=== PATIENT | female | born 1980 | race Caucasian/White ===

== ENCOUNTER 2021-12-05 15:36 | Outpatient (REF) | payer SELFPAY ==
--- NOTE | 2021-12-05 15:00 | PAPFT_PTH ---
PATIENT: Cassy Cedeño LOC: [facility] U#:[id number] AGE/SX: 40/F ROOM: RE12/05/[address]: MATTHEW Loco : 1980 BED: DIS: 12/05/2021 SPEC #: [id number] RECD: 12/05/21 17:13 STATUS: ELIZABETH REGeorge #: [id number] PANCHO: 12/05/21 15:[address]: Lisa Abbasi DEPT: [facility] Cytology RECD BY: Fatou Fernando ENTERED: 12/05/21 17:14 SP TYPE: PAPFT ELMER DR: None Tissues: 1 - CX/ENDOCX FOR PAP SMEARS Procedures: PAP THIN PREP/UVM Screening HPV DNA PROBE Comments: [id number]
== END 2021-12-05 15:37 | disposition home or self-care (01) ==
LOC: LBN 15:36
PROVIDERS: Visit Provider Nurse Practitioner Family
DX: Z12.4 Encounter for screening for malignant neoplasm of cervix (principal); Z11.51 Encounter for screening for human papillomavirus (HPV)
CPT/HCPCS: 88142; 87624

== ENCOUNTER 2023-08-02 18:52 | Inpatient (IN) | payer OTHER, SELFPAY ==
[2023-08-02 17:35] VITALS: BP 132/79; PULSE 117; RESP 16; TEMP 36.7
[2023-08-02 17:36] VITALS: BP 132/79; PULSE 117; TEMP 36.7
--- NOTE | 2023-08-02 18:32 | HPE_ITS ---
Date of service: 08/02/23 Time of Service: 19:08 Assessment and Plan Assessment and plan (1) Encounter for induction of labor: Status: Acute Assessment and plan: Admit to Center. I reviewed indications for induction of labor including prolonged rupture of membranes and unknown GBS status and options of pitocin, misoprostol or cervidil discussed. Risk factors reviewed. Cassy reports weight at 167. However current weight and weight gain is unknown and estimated at over 30 BMI. Estimated weight larger than her largest baby in the past. I reviewed risk of shoulder dystocia and prolapse of the cord due to the high station at this time. She opted for misoprostol at this time and will start misoprostol per protocol. IV access was recommended and she agrees to that. Comfort measures. Anticipate . (2) Prolonged rupture of membranes: Status: Acute Assessment and plan: reviewed risks related to prolonged rupture of membranes and unknown GBS status including illness and . She declines GBS testing at this time. Cassy verbalized understanding and declines antibiotic prophylaxis. Care of the baby was reviewed including 48 hour observation after . Cassy's status reviewed with Dr. Whitaker who is the covering T[employer] BU[employer]DER HELPER. OB-HPI Labor/Delivery History of Present Illness Reason for Visit: NST Chief Complaint: Suspected Rupture of Membranes , Associated Signs and Symptoms of Suspected ROM: prolonged. BLAYNE Calculator Estimated Delivery Date Method Current WG Current Estimate 08/01/23 LMP (Uncertain) 40w 1d Comments: Cassy called this morning at 0900 with report of rupture of membranes at 0300 for a large amount of clear fluid. She declined to come to the hospitalm preferring to labor as long as possible at home. She reported mild contractions and good movement. She called back at 1600 and had been trying various positions and spinning babies but still had no regular contractions. She had not slept and was concerned about fatigue. I recommended that she come to the center for assessment and to dicuss options. History of Present Expected Delivery Route/Plan - CNM FOB - Hardeep Min (new partner, his first child) BB, circ TBD by FOB Declines GBS and all labs; declines all baby meds Her friend/commercial hvac technician (Rachel) will be providing labor support, hopes for waterbirth. Specific Issues/Plan 1. Transfer in from home practice, had 3 babies here at [facility] with CNM's in past 2. Had dating US, records release signed 07/02/23- Dating US and limited anatomy scan performed by Home CNRodolfo in office 3. Taking low dose ASA due to AMA and BMI 4. Declines all labs and GBS, accepts blood if needed to save life 5. See Chiropractor for back pain, records release signed 07/02/23 6. Pt & FOB have 4 children as she adopted a daughter who is now 13 [facility] All Active Problems (Updated 08/02/23 @ 18:32 by Juliette Burroughs CNM) Prolonged rupture of membranes (Acute) Encounter for induction of labor (Acute) IUD strings lost (Acute) Medical History IUD surveillance (02/22/15) IUD (intrauterine device) in place (06/02/16) Vaginal births x 3/ I adopted child Family History Mother Personal history of malignant neoplasm Social History Smoking/Tobacco Use Status: Never Smoking risk assessment performed?: Yes Alcohol Intake: never Drug use: Never Adopted: No Household members: spouse and children Housing: house Number of Children: 4 Communication Needs: None Education Level: college Do you need help understanding health information?: Never Pets and animals: Yes (5 dogs, 2 cats, chicken and ducks) Pets and animals: cat(s) and dog(s) Sexually active: Yes Do you think of yourself as: straight/heterosexual Current gender identity: female What type of physical activity do you participate in: walking Duration: 15-30 minutes/day Frequency: 1-2 times per week Special yaa needs: No Agree to transfusion: Yes Seatbelt use: always Drive intox or ride w/intox haul driver: No Do you feel safe at home: Yes Do you feel safe in your relationship?: Yes Victim of physical abuse: No Victim of emotional abuse: No Victim of sexual abuse: No Would you like helpful sources: No History History 4 Para 3 Hx # Term Pregnancies 3 Multiple births 0 Hx # Pregnancies 0 Ectopic pregnancies 0 AB induced 0 Hx Number of Living Children 3 AB spontaneous 0 Past Pregnancies Del. Date GA/Weeks # Preg Succ Route Wgt Sex Labor Lgth Anesth esia Location Prov Complic 08/21/00 40 No Yes vaginal 7 lb 3 oz Female 12 04/25/03 41 No Yes vaginal 7 lb 7 oz Female 12 03/21/08 42 No Yes vaginal 8 lb 11 oz Male 10 Delivery Date: 08/21/00 Last Updated by: ANNA Garcia with Vandana Pruett Delivery Date: 04/25/03 Last Updated by: ANNA Garcia with Kulwinder Georges Delivery Date: 03/21/08 Last Updated by: ANNA Garcia with Neal Georges Meds Allergies and Home Medications Allergies Allergy/AdvReac Type Severity Reaction Status Date / Time No Known Drug Allergies Allergy Verified 07/29/23 09:43 apple AdvReac Severe Anaphylaxis Verified 07/29/23 09:43 lee AdvReac Anaphylaxis Verified 07/29/23 09:43 peach AdvReac Anaphylaxis Verified 07/29/23 09:43 Home Medications Medication Instructions Recorded Confirmed Type aspirin 81 mg tablet,delayed 81 mg PO DAILY 07/02/23 08/02/23 History release (Adult Aspirin Regimen) magnesium 200 mg tablet 400 mg PO DAILY 07/02/23 08/02/23 History vitamins no.147-iron 1 tab PO DAILY 07/02/23 08/02/23 History gluconate 13 mg-folic acid 1 mg tablet ferrous sulfate 15 mg iron (75 15 mg PO DAILY 07/29/23 08/02/23 History mg)/mL oral syringe (ORAL USE) Exam Physical Exam Vital signs: Temp Pulse Resp BP 98.1 F 117 H 16 132/79 08/02/23 17:36 08/02/23 17:36 08/02/23 17:35 08/02/23 17:36 Detailed Labor and Delivery Exam Dilation: 1 Effacement (%): 25 station: -4 Cervix position: mid Consistency: soft Lemos Score: Cervical Points Exam 0 1 2 3 Dilation Closed 1-2cm 3-4 cm 5-6cm Effacement 0-30% 40-50% 60-70% 80% Consistency Firm Medium Soft Station -3 -2 -1,0 +1,+2 Position Posterior Mid Anterior LEMOS Score(Cervical Ripeness Score): 4 Amniotic Membrane Status: Ruptured (grossly ruptured leaking clear fluid) Rupture Method: Spontaneous Amniotic Fluid: Clear Monitor Mode: External Contraction Frequency(min): occasional Contraction Duration(sec): 60 Contraction Intensity: Mild Fetus A Heart Rate Baseline: 130 Monitor Accelerations: 15 X 15 Monitor Decelerations: None Variability: Moderate (6-25 BPM) Presentation: Vertex Categories: Category I Date of Membrane Rupture: 08/02/23 Time of Membrane Rupture: 03:00 Respiratory Exam Respiratory Exam: Normal Cardiovascular Exam Cardiovascular Exam: Normal Abdominal Exam Abdominal Exam: Normal Exam Exam: Normal Extremities Exam Extremities Exam: Normal Skin Exam Skin Exam: Normal Psychiatric Exam Psychiatric Exam: Normal Risk Assessment Risk for Shoulder Dystocia Historical/Initial OB: POSITIVE FOR: Pre- BMI>30; NEGATIVE FOR: Pelvic Abnormality, Previous Shoulder Dystocia or Previous Macrosomia 40 Weeks: POSTIVE FOR: Maternal Weight Gain >40lb (unknown weight gain. Patient declines all weight checks) Increased Risk?: Yes Delivery Plan @ 36wks: NVD expected Delivery Plan @ 40 wks: Risk for Pre-Eclampsia Yes, if one or more: NEGATIVE FOR: Hx Pre-E/Gest HTN, Chronic HTN, Multiple Gestation, Pre-gestational DM, Renal Disease, Systemic Lupus or APA Syndrome Yes, if 2 or more: POSITIVE FOR: Age>= 35 yrs, >10yr btwn pregnancies and BMI>30; NEGATIVE FOR: Nulliparity, ethinicty, Mother/Sister w/ Pre-E or Previous IUGR Risk for Post- Hemorrhage Initial: NEGATIVE FOR: Multiple Gestation, Previous PPH, Known Clotting Deficiency, Grand Multiparity or Anticoagulation 40 Weeks: NEGATIVE FOR: Anemia, hgb<10, Low platelets (thrombocytopenia), Gestation HTN or Pre-E, Polyhydraminios or EFW>4500gms At Risk?: No Risks Reviewed Risks Reviewed Upon Admission: Yes (increased risk of preeclampsia )
[2023-08-02 19:16] LABS: HGB 12.8 g/dL (11.2-15.7); MCH 28.3 pg (27.0-33.0); MCHC 34.6 % (32.0-36.0); MCV 82 fL (80-95); MPV 10.5 fL (8.0-11.0); Platelet Count 256 10^3/uL (130-400); RBC 4.53 10^6/uL (3.93-5.22); RDW 14.6 % (11.7-14.6); RDW-SD 42.6 fL; WBC 11.81 10^3/uL (4.4-10.8)
[2023-08-02 20:55] VITALS: BP 120/73; PULSE 110; TEMP 36.6
[2023-08-02] MEDS: Penicillin G POT. 5,000,000 UNITS in Normal Saline 100 ML 200 UNITS IVPB (20:56)
[2023-08-02] MEDS: Lactated Ringers 1,000 ML 200 ML IV (20:57)
[2023-08-02] MEDS: miSOPROStol 25 MCG TAB 50 MCG PO (21:08)
[2023-08-02 21:39] VITALS: TEMP 36.7
[2023-08-02 23:09] VITALS: BP 128/85; PULSE 94; TEMP 36.9
[2023-08-03] VITALS (189 sets, daily range): BP systolic 89–160; BP diastolic 47–84; PULSE 0–245; RESP 16–20; TEMP 36.4–36.9; O2SAT 88–100; BMI 28.6
--- NOTE | 2023-08-03 01:09 | ANES.PREOP_ITS ---
General Info Date of Service Date Performed: 08/03/23 Height: 5 ft 4 in Weight: 75.75 kg Body Mass Index (BMI): 28.6 Meds Allergies and Home Medications Allergies Allergy/AdvReac Type Severity Reaction Status Date / Time No Known Drug Allergies Allergy Verified 07/29/23 09:43 apple AdvReac Severe Anaphylaxis Verified 07/29/23 09:43 lee AdvReac Anaphylaxis Verified 07/29/23 09:43 peach AdvReac Anaphylaxis Verified 07/29/23 09:43 Home Medication Medication Instructions Recorded aspirin 81 mg tablet,delayed 81 mg PO DAILY 07/02/23 release (Adult Aspirin Regimen) magnesium 200 mg tablet 400 mg PO DAILY 07/02/23 vitamins no.147-iron 1 tab PO DAILY 07/02/23 gluconate 13 mg-folic acid 1 mg tablet ferrous sulfate 15 mg iron (75 15 mg PO DAILY 07/29/23 mg)/mL oral syringe (ORAL USE) Current Visit Medications: Current Medications Generic Name Dose Route Start Last Admin Trade Name Freq PRN Reason Stop Dose Admin Fentanyl/Ropivacaine 200 ml 08/03/23 01:15 Fentanyl/Ropivacaine 2 Mcg/Ml And 0.1% 200 Ml Cadd Cassette EP DIRECTED GIOVANNI Ringer's Solution 1,000 mls @ 200 mls/hr 08/02/23 19:00 08/02/23 21:38 IV 0 mls/hr INFUSION [facility] Infusion Penicillin G Potassium 3,000, 50 mls @ 100 mls/hr 08/03/23 02:00 000 units/ Sodium Chloride IVPB Q4H GIOVANNI Ringer's Solution 500 mls @ 500 mls/hr 08/03/23 01:02 IV 08/03/23 02:01 BOLUS ONE IV Miscellaneous Supplies 1 each 08/02/23 19:00 Iv Access IV DIRECTED [facility] IV Miscellaneous Supplies 1 each 08/02/23 20:30 Iv Access IV DIRECTED [facility] Misoprostol 50 mcg 08/02/23 19:00 08/02/23 21:08 Misoprostol 25 Mcg Tab PO 50 mcg Q4H GIOVANNI Administration Sodium Chloride 0 ml 08/02/23 18:52 Normal Saline Flush 10 Ml Syr IVP PRN PRN Sodium Chloride 0 ml 08/02/23 18:52 Normal Saline 10 Ml Vial IJ DIRECTED PRN Sodium Chloride 0 ml 08/02/23 20:29 Normal Saline Flush 10 Ml Syr IVP PRN PRN Sodium Chloride 0 ml 08/02/23 20:29 Normal Saline 10 Ml Vial IJ DIRECTED PRN Terbutaline Sulfate 0.25 mg 08/02/23 18:52 Terbutaline 1 Mg/Ml Vial SC PRN PRN Zolpidem Tartrate 10 mg 08/02/23 21:00 08/02/23 23:27 Zolpidem 5 Mg Tab PO 08/03/23 06:00 Not Given 2100 [facility] PFS Active Problems Active Problems: Problem Status Onset Code Prolonged rupture of membranes O42.90 Encounter for induction of labor Z34.90 Medical History Medical History (Updated 08/02/23 @ 21:19 by Krupa Bird) IUD strings lost IUD surveillance (02/22/15) IUD (intrauterine device) in place (06/02/16) Vaginal births x 3/ I adopted child Tobacco Smoking/Tobacco Use Status: Never Alcohol Alcohol Intake: never Substance Use Substance use: Never Prental History History 2 4 Para 3 Hx # Term Pregnancies 3 Multiple births 0 Hx # Pregnancies 0 Ectopic pregnancies 0 AB induced 0 Hx Number of Living Children 3 AB spontaneous 0 Past Pregnancies Del. Date GA/Weeks # Preg Succ Route Wgt Sex Labor Lgth Anesth esia Location Prov [facility] 08/21/00 40 No Yes vaginal 3260.195 g Female 12 04/25/03 41 No Yes vaginal 3373.593 g Female 12 03/21/08 42 No Yes vaginal 3940.584 g Male 10 Delivery Date: 08/21/00 Last Updated by: ANNA Garcia with Vandana Pruett Delivery Date: 04/25/03 Last Updated by: ANNA Garcia with Kulwinder Georges Delivery Date: 03/21/08 Last Updated by: ANNA Garcia with Neal Geroges Vital Signs and Lab Results Vital Signs Most Recent Vital Signs in EMR: Most Recent Vital Signs Temp Pulse Resp BP 36.4 C 94 H 16 128/85 08/03/23 00:51 08/02/23 23:09 08/02/23 17:35 08/02/23 23:09 Lab Results 08/02/23 19:10 Blood Type / Crossmatch: 2 Patient ABO/Rh O Positive 08/02/23 Antibody Screen NEGATIVE 08/02/23 Complete Blood Count: 2 White Blood Count 11.81 10^3/uL (4.4-10.8) H 08/02/23 19:10 Red Blood Count 4.53 10^6/uL (3.93-5.22) 08/02/23 19:10 Hemoglobin 12.8 g/dL (11.2-15.7) 08/02/23 19:10 Hematocrit 37.0 % (36.0-46.0) 08/02/23 19:10 Platelet Count 256 10^3/uL (130-400) 08/02/23 19:10 Complete Metabolic Panel: 2 No Data to Display Liver Function Panel: 2 No Data to Display Coagulation Panel: 2 No Data to Display Cardiac Panel: 2 No Data to Display Arterial Blood Gas: 2 No Data to Display Venous Blood Gas: 2 No Data to Display Pancreas Panel: 2 No Data to Display Thyroid Panel: 2 No Data to Display Infectious Disease: 2 No Data to Display Blood Cultures: 2 No Data to Display Toxicology Panel: 2 No Data to Display Panel: 2 No Data to Display Anesthesia Assessment and Plan Anesthesia History Personal History: No History of Anesthesia Complications Family History: No Family History of Anesthesia Complications Exercise Tolerance Exercise Tolerance: Metabolic Equivalents>4 Pertinent Negatives Pertinent Negatives: No Major Cardiovascular Symptoms or Complaints and No Major Pulmonary Symptoms or Complaints Cardiac & Pulmonary Exam Cardiac Exam: Normal S1/S2 Heart Sounds Pulmonary Exam: Clear Bilateral Breath Sounds Implantable Cardiac Device Does patient have a Pacemaker or an ICD?: No Airway Exam Known Difficult Airway: No Mallampati Class: 2 Mouth Opening: Normal (> 3cm) Thyromental Distance: Greater than 3 cm Neck Range of Motion: Full ROM Neck Circumference: Normal Teeth Condition: Normal Dentition ASA Classification ASA Score: ASA 2 Emergency Case?: No NPO Status NPO Status: Full Stomach Status Status: Confirmed Anesthesia Plan Resuscitation Status: Full Code Anesthesia Technique: Labor Epidural Airway Planned: Natural Airway Monitors Used: Standard Monitors
--- NOTE | 2023-08-03 01:19 | W.PM.OBNL1 ---
Date of service: 08/03/23 Time of Service: 01:29 Pelvic Exam Dilation: 1 Effacement (%): 90 station: -3 Cervix Position: posterior Consistency: soft Pooling: Positive Comments: vertex is now palpable and well applied to the cervix. Presentation checked with POCUS exam previously Contractions Monitor Mode: External Contraction Frequency(min): every 3 min Contraction Duration(sec): 50-60 Intensity: Moderate/Strong Fetus A Monitor: External (US) Heart Rate Baseline: 120 Presentation: Vertex Variability: Moderate (6-25 BPM) Categories: Category I FHR Rhythm: Regular Accelerations: 15 X 15 Decelerations: Variable Assessment and Plan Assessment and plan (1) Prolonged rupture of membranes: Status: Acute Assessment and plan: Continue penicilin per protocol for GBS prophylaxis. (2) Encounter for induction of labor: Status: Acute Assessment and plan: Reviewed pain relief options. Cassy would like to have an epidural at this time and Hardeep Hollingsworth CRNA was paged. Objective Abnormal lab results 08/02/23 Range/Units 19:10 WBC 11.81 H (4.4-10.8) 10^3/uL Temp Pulse Resp BP Pulse Ox 97.6 F 95 H 16 128/85 98 08/03/23 00:51 08/03/23 01:14 08/02/23 17:35 08/02/23 23:09 08/03/23 01:14 Laboratory Results WBC 11.81 10^3/uL (4.4-10.8) H 08/02/23 19:10 RBC 4.53 10^6/uL (3.93-5.22) 08/02/23 19:10 Hgb 12.8 g/dL (11.2-15.7) 08/02/23 19:10 Hct 37.0 % (36.0-46.0) 08/02/23 19:10 MCV 82 fL (80-95) 08/02/23 19:10 MCH 28.3 pg (27.0-33.0) 08/02/23 19:10 MCHC 34.6 % (32.0-36.0) 08/02/23 19:10 RDW 14.6 % (11.7-14.6) 08/02/23 19:10 Plt Count 256 10^3/uL (130-400) 08/02/23 19:10 MPV 10.5 fL (8.0-11.0) 08/02/23 19:10 Patient ABO/Rh O Positive 08/02/23 19:10 Antibody Screen NEGATIVE 08/02/23 19:10 Subjective Interval history since last seen: Cassy agreed to antibiotic therapy and IV penicillin was started for GBS prophylaxis. She received one dose of misoprostol and began experiencing strong regular contractions. She is afebrile and is coping well with contractions but complains of fatigue and requests pain relief. Results Hemoglobin/Hematocrit: Hgb 12.8 g/dL (11.2-15.7) 08/02/23 19:10 Hct 37.0 % (36.0-46.0) 08/02/23 19:10 Abnormal Lab Findings: Abnormal Labs 08/02/23 19:10 WBC 11.81 H
[2023-08-03] MEDS: Penicillin G POT. 3,000,000 UNITS in Normal Saline 50 ML 100 UNITS IVPB ×2 (02:33→07:55)
--- NOTE | 2023-08-03 02:45 | W.ANESNEU ---
Epidural/Spinal Catheter Date Performed: 08/03/23 Procedure Start: 01:43 Procedure Stop: 02:45 Requesting Provider: Juliette Burroughs Procedure Location: Obstetrics Reason Performed: Labor Epidural Standard Monitors Applied: Blood Pressure, SpO2 and See EMR for corresponding vital signs Patient Position: Sitting Sedation Given (Indicate Dose Given): No Sedation given Patient Mental Status: Awake Sterility: Hand Hygiene, Surgical Cap, Surgical Mask, Sterile Gloves, Sterile Drape/Sheet and Chlorhexidine Procedure Location: L3-L4 Interspace Epidural Needle: Tuohy 18 Gauge Needle Length: 3.5 Inch Needle Approach: Midline Epidural Procedure: Skin Prepped, Sterile Drape Placed, 1% Lidocaine to skin and subcutaneous tissue with 25G needle, Tuohy Needle placed, CECELIA to Saline Used, Epidural Catheter Placed, Negative Heme and Negative CSF Flow Catheter Placed?: Catheter Placed Test Dose (Indicate Dose Given): 3ml 1.5% Lidocaine with 1:200K Epinephrine Given and Negative Test Dose Loss of Resistance Depth (cm): 7 Catheter depth at skin (cm): 12 Dressing: Sorbaview Dressing Placed, Mastisol Used and Dressing reinforced with Tape Epidural Provider Bolus (Indicate Dose Given): Total bolus dose given in 3-5 ml divided doses and Total Ropivacaine 0.1% with Fentanyl 2mcg/ml Given from pump. (ml) Dose:: 10ml total Additives (Indicate Dose Given ): None Infusion Medication: Medication Infusion Began Medication Infusion: Ropivacaine 0.1% with Fentanyl 2mcg/ml Maintenance Infusion Rate (ml/hour): 10 PCEA Bolus Dose (ml): 5 Block Level: N/A Paresthesia: None Ultrasound: Not Used Number of Attempts (See previous attempts in note section): 2 Procedure Tolerated: Patient tolerated well Procedure Outcome: Successful Procedure Comment:: First attempt at L2/L3 space with initial bone contact, reposition with epidural CECELIA. Catheter placed with heme noted in catheter. Catheter withdrew to 12cm with still aspiration of blood. Catheter removed. Second Attempt one space below with CECELIA to saline, catheter again placed with ease and needle removed. Test dose given which was negative. I did initially note multiple drips from catheter of clear fluid, but given that Tuohy has no fluid flow and no aspiration when attempted, this is felt to be saline. Dressing applied. Dosed at 5ml x2. Legs feel normal with Motor strength 5/5 and no paresthesia again confirming epidural placement. Pt. states she is much more comfortable but still some slight discomfort to left lower abdomen. She educated on PCEA use and positioning with epidural therapy. All questions answered. Performed By: Hardeep Hollingsworth
--- NOTE | 2023-08-03 02:46 | W.PM.OBNL1 ---
Date of service: 08/03/23 Time of Service: 02:47 Informed Consent Informed Consent: Augmentation of Labor (pitocin to maintain adequate labor pattern discussed. ) Pelvic Exam Comments: SVE deferred at this time. Contractions Monitor Mode: External Contraction Frequency(min): every 5-6 minutes Contraction Duration(sec): 60 Intensity: Moderate/Strong Fetus A Monitor: External (US) Heart Rate Baseline: 120 Presentation: Vertex Variability: Moderate (6-25 BPM) Categories: Category I Accelerations: 15 X 15 Decelerations: Variable Recurrence: Episodic Assessment and Plan Assessment and plan (1) Encounter for induction of labor: Status: Acute Assessment and plan: Rest encouraged. Will assess by cervical exam when appropriate. Anticipate . Objective Abnormal lab results 08/02/23 Range/Units 19:10 WBC 11.81 H (4.4-10.8) 10^3/uL Temp Pulse Resp BP Pulse Ox 98.2 F 114 H 16 109/57 L 97 08/03/23 02:38 08/03/23 02:43 08/03/23 01:32 08/03/23 02:41 08/03/23 02:43 Laboratory Results WBC 11.81 10^3/uL (4.4-10.8) H 08/02/23 19:10 RBC 4.53 10^6/uL (3.93-5.22) 08/02/23 19:10 Hgb 12.8 g/dL (11.2-15.7) 08/02/23 19:10 Hct 37.0 % (36.0-46.0) 08/02/23 19:10 MCV 82 fL (80-95) 08/02/23 19:10 MCH 28.3 pg (27.0-33.0) 08/02/23 19:10 MCHC 34.6 % (32.0-36.0) 08/02/23 19:10 RDW 14.6 % (11.7-14.6) 08/02/23 19:10 Plt Count 256 10^3/uL (130-400) 08/02/23 19:10 MPV 10.5 fL (8.0-11.0) 08/02/23 19:10 Patient ABO/Rh O Positive 08/02/23 19:10 Antibody Screen NEGATIVE 08/02/23 19:10 Subjective Interval history since last seen: Cassy received epidural placed by Hardeep Hollingsworth CRNA. with good effect Results Hemoglobin/Hematocrit: Hgb 12.8 g/dL (11.2-15.7) 08/02/23 19:10 Hct 37.0 % (36.0-46.0) 08/02/23 19:10 Abnormal Lab Findings: Abnormal Labs 08/02/23 19:10 WBC 11.81 H
[2023-08-03] MEDS: Lactated Ringers 1,000 ML 200 ML IV ×2 (04:41→10:17)
--- NOTE | 2023-08-03 06:33 | W.PM.OBNL1 ---
Date of service: 08/03/23 Time of Service: 06:33 Informed Consent Informed Consent: Augmentation of Labor (pitocin to maintain adequate labor pattern discussed. ) Pelvic Exam Dilation: 8 Effacement (%): 100 station: -1 Cervix Position: mid Consistency: soft Pooling: Positive Contractions Monitor Mode: External Contraction Frequency(min): every 5 minutes Contraction Duration(sec): 60-90 Intensity: Strong Fetus A Monitor: External (US) Heart Rate Baseline: 130 Variability: Moderate (6-25 BPM) Categories: Category I FHR Rhythm: Regular Accelerations: 15 X 15 Decelerations: None Objective Abnormal lab results 08/02/23 Range/Units 19:10 WBC 11.81 H (4.4-10.8) 10^3/uL Temp Pulse Resp BP Pulse Ox 98.1 F 114 H 16 131/71 98 08/03/23 06:02 08/03/23 06:28 08/03/23 01:32 08/03/23 06:18 08/03/23 06:28 Laboratory Results WBC 11.81 10^3/uL (4.4-10.8) H 08/02/23 19:10 RBC 4.53 10^6/uL (3.93-5.22) 08/02/23 19:10 Hgb 12.8 g/dL (11.2-15.7) 08/02/23 19:10 Hct 37.0 % (36.0-46.0) 08/02/23 19:10 MCV 82 fL (80-95) 08/02/23 19:10 MCH 28.3 pg (27.0-33.0) 08/02/23 19:10 MCHC 34.6 % (32.0-36.0) 08/02/23 19:10 RDW 14.6 % (11.7-14.6) 08/02/23 19:10 Plt Count 256 10^3/uL (130-400) 08/02/23 19:10 MPV 10.5 fL (8.0-11.0) 08/02/23 19:10 Patient ABO/Rh O Positive 08/02/23 19:10 Antibody Screen NEGATIVE 08/02/23 19:10 Subjective Interval history since last seen: Cassy has been sleeping comfortably.She is beginning to feel pressure and breathing through contractions. Results Hemoglobin/Hematocrit: Hgb 12.8 g/dL (11.2-15.7) 08/02/23 19:10 Hct 37.0 % (36.0-46.0) 08/02/23 19:10 Abnormal Lab Findings: Abnormal Labs 08/02/23 19:10 WBC 11.81 H
--- NOTE | 2023-08-03 09:57 | W.PM.OBNL1 ---
Date of service: 08/03/23 Time of Service: 09:57 Informed Consent Informed Consent: Other (consented for IUPC and FSE) Pelvic Exam Dilation: 8 station: -3 Position: LOP (caput obscuring clear palpation of landmarks) Consistency: soft (remaining cvx on maternal right is edematous) Contractions Monitor Mode: External Contraction Frequency(min): q5-6 Contraction Duration(sec): 60-70 Intensity: Moderate/Strong Fetus A Monitor: External (US) Heart Rate Baseline: 145 Variability: Moderate (6-25 BPM) Categories: Category I Accelerations: Present Decelerations: Early Recurrence: Intermittent Amniotic Membrane Status: Ruptured Assessment and Plan Assessment and plan (1) Encounter for induction of labor: Status: Acute Assessment and plan: A: Received hand-off from ANNA Burroughs @ 40 wks, last delivery 15 yrs ago, AMA, limited PNC EFW >4300 gms, PROM >24 hrs, IOL with 1 misoprostel dose Epidural anesthesia, slowing contraction pattern Overall category 1 tracing, periods of minimal variability No cervical change or descent x3 hours Discussed pitocin augmentation if MVU <200, pt declines P: IUPC and FSE placed with pt consent Dr. Gregorio notified of pt status, consultation requested (2) Prolonged rupture of membranes: Status: Acute Assessment and plan: PCN prophylaxis is adequate, 3rd dose given this morning GBS status is unknown, PROM x31 hours (3) Macrosomia affecting management of mother in third trimester, single gestation: Status: Acute Assessment and plan: EFW by abdominal palpation >4300 gms (4) History of inadequate care: Status: Acute Assessment and plan: Late transfer of care from community health consultant in [place] Records indicate pt declined ultrasounds and lab tests normally recommended Infrequent visits Objective Vital Signs Reviewed: Yes Subjective Interval history since last seen: Epidural is providing adequate pain relief, pt able to sleep for 2 hrs and feels refreshed, contractions have decreased in frequency, feels pelvic pressure when she has one.
--- NOTE | 2023-08-03 10:58 | OBCE_ITS ---
Date of service: 08/03/23 Time of Service: 10:58 Assessment and Plan Assessment and plan (1) Macrosomia affecting management of mother in third trimester, single gestation: Status: Acute Assessment and plan: Patient will be taken for primary low-transverse section. The risk benefits and alternatives of surgical delivery were explained to the patient. She understands the risk of infection, bleeding, injury to surrounding organs, risk of anesthesia. She will have preoperative antibiotics which will include Ancef and Zithromax. She will have pneumatic compression stockings for DVT prophylaxis and received Bicitra. Anesthesia is aware of the patient's presence, her current epidural will most likely be converted to a spinal anesthesia. Full informed consent was obtained. (2) Prolonged rupture of membranes: Status: Acute (3) History of inadequate care: Status: Acute (4) Arrested labor: Status: Acute History of Present Illness History of Present Illness Chief Complaint: Labor arrest Narrative: Kindly asked to see in consultation this 42-year-old female with a history of previous vaginal deliveries, the last being 15 years ago. 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 She had not had an official anatomy ultrasound, nor has she had glucose tolerance testing. She opted for most care at home. She did have spontaneous rupture of membranes or clear fluid greater than 24 hours ago. She did receive antibiotics for prophylaxis. She has unknown group B strep status. She did receive an epidural for pain control and arrested her labor at 8 cm with the head at the -2 station and significant caput with cervical dilation at 8 cm. In light of this, she wishes to proceed with an alternative delivery route. The risks, benefits, and alternatives of delivery were explained to the patient in full informed consent was obtained. She will be taken to the operating suite for primary section due to labor arrest. My clinical suspicion is that this baby is greater than 10 pounds. Pediatrics is notified and will be present for delivery. Anesthesia is aware. Consults Consult date: 08/03/23 Requesting physician: Krupa Bird Review of Systems All systems reviewed & are unremarkable except as noted in HPI and below Constitutional Constitutional: Reports system reviewed and no additional complaints, except as documented Cardiovascular Cardiovascular: Reports system reviewed and no additional complaints, except as documented Respiratory Respiratory: Reports system reviewed and no additional complaints, except as documented Gastrointestinal Gastrointestinal: Reports system reviewed and no additional complaints, except as documented Psychiatric Psychiatric: Reports system reviewed and no additional complaints, except as documented PFSH All Active Problems (Updated 08/03/23 @ 11:00 by Felicia Gregorio DO) Arrested labor (Acute) History of inadequate care (Acute) Macrosomia affecting management of mother in third trimester, single gestation (Acute) Prolonged rupture of membranes (Acute) Encounter for induction of labor (Acute) Medical History (Updated 08/03/23 @ 11:00 by Felicia Gregorio DO) IUD strings lost IUD surveillance (02/22/15) IUD (intrauterine device) in place (06/02/16) Vaginal births x 3/ I adopted child Family History Mother Personal history of malignant neoplasm Social History Smoking/Tobacco Use Status: Never Smoking risk assessment performed?: Yes Alcohol Intake: never Drug use: Never Adopted: No Household members: spouse and children Housing: house Number of Children: 4 Communication Needs: None Education Level: college Do you need help understanding health information?: Never Pets and animals: Yes (5 dogs, 2 cats, chicken and ducks) Pets and animals: cat(s) and dog(s) Sexually active: Yes Do you think of yourself as: straight/heterosexual Current gender identity: female What type of physical activity do you participate in: walking Duration: 15-30 minutes/day Frequency: 1-2 times per week Special yaa needs: No Agree to transfusion: Yes Seatbelt use: always Drive intox or ride w/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 Date GA/Weeks # Preg Succ Route Wgt Sex Labor Lgth Anesth esia Location Prov Complic 08/21/00 40 No Yes vaginal 7 lb 3 oz Female 12 04/25/03 41 No Yes vaginal 7 lb 7 oz Female 12 03/21/08 42 No Yes vaginal 8 lb 11 oz Male 10 Delivery Date: 08/21/00 Last Updated by: ANNA Garcia with Vandana Pruett Delivery Date: 04/25/03 Last Updated by: ANNA Garcia with Kulwinder Georges Delivery Date: 03/21/08 Last Updated by: Juliette Pires CNM [facility] with Neal Georges Results Last Vital Signs Temp 98.4 F 08/03/23 08:01 Pulse 114 H 08/03/23 10:53 Resp 16 08/03/23 01:32 BP 123/65 08/03/23 10:50 Pulse Ox 96 08/03/23 10:53 Labs 08/02/23 19:10 Labs: Laboratory Results - last 24 hr 08/02/23 19:10 WBC 11.81 H RBC 4.53 Hgb 12.8 Hct 37.0 MCV 82 MCH 28.3 MCHC 34.6 RDW 14.6 Plt Count 256 MPV 10.5 Patient ABO/Rh O Positive Antibody Screen NEGATIVE
[2023-08-03] MEDS: Sodium Citrate 30 ML CUP PO (11:14)
[2023-08-03] MEDS: AZITHROMYCIN 500 MG in Normal Saline 250 ML 250 MG IVPB (11:18)
[2023-08-03] MEDS: ceFAZolin 2 GM/50 ML BAG IVPB (11:54)
[2023-08-03] MEDS: Bupivacaine 0.25% Pres-Free 30 ML VIAL (11:56)
--- NOTE | 2023-08-03 12:05 | PLAC_PTH ---
PATIENT: Cassy Cedeño LOC: OBS U#:[id number] AGE/SX: 42/F ROOM: OBS.303 RE08/02/[address]: Felicia Gregorio DO : 1980 BED: A DIS: 08/05/2023 SPEC #: [id number] RECD: 08/03/23 16:35 STATUS: SOUT REQ #: [id number] PANCHO: 08/03/23 12:[address]: Felicia Gregorio DEPT: Surgical Specimen RECD BY: Fatou Fernando ENTERED: 08/03/23 16:35 SP TYPE: PLAC OTHR DR: Unknown,Unknown Tissues: 1 - PLACENTA (3RD TRIMESTER) Procedures: GROSS AND MICRO LEVEL 5 Comments: [id number]
[2023-08-03] MEDS: Tranexamic Acid 1,000 MG/10 ML VIAL 1000 MG (12:13)
--- NOTE | 2023-08-03 12:55 | W.PM.OBCSECT ---
Date of service: 08/03/23 Time of Service: 12:55 Operative Note Operative Note Delivery Method: Unscheduled STAT: No and Primary NTSV>37 Weeks: Yes DATE OF PROCEDURE: 08/03/23 PRE-OP DIAGNOSES: at 41 weeks, arrest of labor. POST-OP DIAGNOSES: same Persistent occiput posterior PROCEDURE: Primary low-transverse section SURGEON: Felicia Gregorio Assisting Surgeon: Leslie Villa Anesthesia: local and spinal Estimated blood loss (mL): 800 Pathology: other (Placenta for exam) Complications: None Patient was transported to: floor Patient's condition: stable Indications: Labor arrest, prolonged rupture of membranes Findings: Delivery of a viable male from the persistent occiput posterior position. Normal tubes, ovaries, uterus Procedure Description: After full informed consent was obtained, patient was taken the operating suite with an IV running where she is placed in the seated position. Epidural catheter was removed and spinal anesthesia administered. She was then placed in the dorsal supine position with leftward tilt and prepped and draped in the usual sterile fashion. She received Ancef and Zithromax for surgical site infection prophylaxis. She had pneumatic compression stockings for DVT prophylaxis. She had a vaginal preparation and abdominal preparation and Evans catheter was inserted for continuous bladder drainage. Exam under anesthesia revealed a vertex in the occiput posterior position high out of the pelvis with significant caput and molding and 8 cm with a swollen anterior cervical lip. At this point after infiltration of cord percent Marcaine, Pfannenstiel skin incision was made and carried down to the underlying fascia which was then nicked in the midline and extended laterally. The rectus muscles were identified and split in the midline. The peritoneum identified tented up and entered sharply and the peritoneal incision then extended superiorly and inferiorly. At this point the bladder blade was inserted and the vesicouterine peritoneum identified tented up and entered sharply. A bladder flap was created and the bladder blade was reinserted. A low transverse uterine incision was made and extended bluntly laterally. At the point of the incision was noted to be of the mouth in the occiput posterior position. With gentle retraction of the vertex through the incision the vertex was delivered without difficulty. There was no evidence of nuchal cord and the shoulders followed with ease. Three-vessel cord was noted clamped x 2 and cut and the infant was then handed off to the waiting motor vehicles inspector. At this point cord blood sample was obtained. The placenta was manually expressed from the uterus and the uterus exteriorized and cleared of all clot and debris. The uterine incision was closed with an extension on the right side near to the cervix initially and a interrupted fashion with 0 Monocryl and a second layer of imbricating sutures were placed. There was a small area of the above some peritoneal hematoma at the left aspect of the incision which was oversewn and noted to be hemostatic. Inspection of the tubes and ovaries were found to be normal. The uterus was then returned to the abdomen abdomen irrigated with copious amounts of normal saline. The uterine incision was reinspected and noted to be hemostatic. At this point the fascial incision was closed using 0 Vicryl suture in a running fashion. Subcutaneous tissue irrigated with copious amounts of normal saline and reapproximated with 3-0 Vicryl suture. The skin and she was then reapproximated in a subcuticular fashion with 4-0 undyed Monocryl. Steri-Strips and a sterile dressing were placed. Patient was taken the center with a Evans catheter draining clear yellow urine. Complications: None apparent EBL: 800 mL Fluids: Crystalloid per anesthesia Pathology: Placenta for examination.
--- NOTE | 2023-08-03 15:04 | W.ANESPOSTOP ---
Postoperative Evaluation Date, Time and Location Date Performed: 08/03/23 Time Performed: 15:05 Patient Location: Obstetrics Vital Signs Most Recent Imported Vital Signs: Most Recent Vital Signs Temp Pulse Resp BP Pulse Ox 36.4 C 105 H 16 112/65 95 08/03/23 12:58 08/03/23 14:17 08/03/23 14:17 08/03/23 14:17 08/03/23 14:21 Assessment Mental Status: Awake (Alert & Oriented to Patient Baseline) Airway and Respiratory Function: Patent airway with normal (patient baseline) respiratory exam Cardiovascular Function: Hemodynamically Stable Hydration Status: Adequately Hydrated Nausea & Vomiting: No Nausea or Vomiting Pain: Pain is tolerable per patient Peripheral Nerve Block: Patient did not receive a nerve block
--- NOTE | 2023-08-03 16:38 | OBPPV_ITS ---
Date of service: 08/03/23 Time of Service: 16:38 Assessment and Plan Assessment and plan (1) Status post primary low transverse section: Status: Acute Assessment and plan: Patient is postop day #0 status post primary low-transverse section for labor arrest. She had a high average intraoperative blood loss. Postoperatively, she is stable, she does have mild tachycardia though asy mptomatic from this. Her urine output is adequate. Will continue to monitor closely and she will have a CBC in the morning. All questions were answered. Anticipate routine postoperative care. (2) Arrested labor: Status: Acute Subjective Subjective Interval history: Patient seen and examined, surgery discussed. All questions were answered. Vital signs reviewed, mild tachycardia though asymptomatic. CBC pending for the morning. High average blood loss. Would anticipate a drop from her hemoglobin of 12.8 to roughly 9 based on volume of blood loss. Will ambulate, increase her diet today. Pain control as needed. All questions answered [place] baby status: Doing well, Nursing well and Strong Bonding Observed Exam Physical Exam Vital signs: Temp Pulse Resp BP Pulse Ox 98.2 F 111 H 16 138/73 95 08/03/23 15:00 08/03/23 16:06 08/03/23 16:06 08/03/23 16:06 08/03/23 14:21 Results Hemoglobin/Hematocrit: Hgb 12.8 g/dL (11.2-15.7) 08/02/23 19:10 Hct 37.0 % (36.0-46.0) 08/02/23 19:10 Abnormal Lab Findings: Abnormal Labs 08/02/23 19:10 WBC 11.81 H
[2023-08-03] MEDS: Ketorolac 30 MG/ML VIAL 15 MG IVP (18:00)
[2023-08-04 01:00] VITALS: BP 119/73; PULSE 112; RESP 18; TEMP 36.8
[2023-08-04] MEDS: Ketorolac 30 MG/ML VIAL 15 MG IVP (01:16)
[2023-08-04 03:58] VITALS: BP 120/66; PULSE 108; RESP 18; TEMP 36.6; O2SAT 97
[2023-08-04] MEDS: Normal Saline Flush 10 ML SYR IVP (06:24)
[2023-08-04] MEDS: oxyCODONE 5 mg/Acetaminophen 325 mg TAB PO ×4 (06:30→19:22)
[2023-08-04 07:06] LABS: Abs Immature Grans 0.07 10^3/uL (0.0-0.06); Absolute Basophil Count 0.03 10^3/uL (0.0-0.2); Absolute Monocyte Count 1.04 10^3/uL (0.1-0.8); Absolute Neutrophil Count 11.02 10^3/uL (1.2-6.7); Basophils % 0.2; Eosinophils % 0.6; HCT 29.5 % (36.0-46.0); Immature Grans % 0.5; Lymphocytes % 12.1; MCHC 33.9 % (32.0-36.0); MCV 83 fL (80-95); MPV 10.6 fL (8.0-11.0); Monocytes % 7.5; Neutrophils % 79.1; Platelet Count 219 10^3/uL (130-400); RBC 3.57 10^6/uL (3.93-5.22); RDW 14.9 % (11.7-14.6); WBC 13.93 10^3/uL (4.4-10.8)
[2023-08-04 07:13] LABS: Absolute Eosinophil Count 0.08 10^3/uL (0.0-0.7); Absolute Lymphocyte Count 1.69 10^3/uL (1.2-3.4)
[2023-08-04 08:26] VITALS: BP 119/72; PULSE 103; RESP 16; TEMP 36.6
[2023-08-04 09:52] VITALS: RESP 18
[2023-08-04] MEDS: Ibuprofen 600 MG TAB PO ×3 (11:10→23:47)
[2023-08-04] MEDS: Docusate Sodium 100 MG CAP PO (11:14)
[2023-08-04 12:12] VITALS: BP 116/70; PULSE 113; RESP 18; TEMP 36.9; O2SAT 100
--- NOTE | 2023-08-04 14:05 | W.POCUS ---
Pocus Exam Limited OB Exam DATE OF EXAM:: 08/02/23 TIME OF EXAM:: 18:30 PROVIDER THAT PERFORMED THE STUDY: Juliette Burroughs IS THIS A REPEAT EXAM DURING THIS ENCOUNTER: No Type of Exam: Pelvic OB Trans Abdominal REASON FOR EXAM: other (unable to determine presentation) indication: presentation PERTINENT FINDINGS/IMPRESSION: other (presentation) impression: vertex presentation Exam Complete.
[2023-08-04 16:03] VITALS: BP 121/68; PULSE 108; RESP 16; TEMP 36.6; O2SAT 99
[2023-08-05] MEDS: oxyCODONE 5 mg/Acetaminophen 325 mg TAB PO ×3 (03:14→11:46)
[2023-08-05] MEDS: Ibuprofen 600 MG TAB PO ×2 (06:51→12:47)
[2023-08-05 07:30] VITALS: BP 131/73; PULSE 109; RESP 16; TEMP 36.4; O2SAT 97
--- NOTE | 2023-08-05 08:54 | OBPPV_ITS ---
Date of service: 08/05/23 Time of Service: 08:54 Assessment and Plan Assessment and plan (1) Status post primary low transverse section: Status: Acute Assessment and plan: Postoperative day #2 status post primary low-transverse section for labor arrest and persistent occiput posterior. Overall doing well. Discharged home today. Follow-up in the office for incision check in 1 week and 6 weeks. All instructions were given. Prescription sent to the pharmacy. Subjective Subjective Interval history: Patient seen and examined this morning. She states that she is ready to be discharged. Her pain is under reasonable control with oral pain medication. She is ambulating, voiding without difficulty and has stable vital signs. Again the course of her , labor, and delivery were discussed with the patient [place] baby status: Doing well and Nursing well [place] feeding status: Exclusively breast feeding Exam Physical Exam Vital signs: Temp Pulse Resp BP Pulse Ox 97.6 F 109 H 16 131/73 97 08/05/23 07:30 08/05/23 07:30 08/05/23 07:30 08/05/23 07:30 08/05/23 07:30 Vital Signs Reviewed: Yes Notable Details: Tachycardia is resolving Constitutional Constitutional: no acute distress HEENT Exam HEENT Exam: Normal Neck Exam Neck Exam: Normal Respiratory Exam Respiratory Exam: Normal Cardiovascular Exam Cardiovascular Exam: Normal Abdominal Exam Abdomen: Tender Comments: Incision is dressed, slight shadowing. Continue use of Mepilex dressing Fundal Exam Fundus: Below Umbilicus and Firm Extremities Exam Extremity Exam: Normal; negative Calf Tenderness, Edema or Redness Skin Exam Skin Exam: Normal Neurological Exam Neurological Exam: Normal Psychiatric Exam Psychiatric Exam: Normal Results Hemoglobin/Hematocrit: Hgb 10.0 g/dL (11.2-15.7) L D 08/04/23 06:05 Hct 29.5 % (36.0-46.0) L 08/04/23 06:05 Abnormal Lab Findings: Abnormal Labs 08/02/23 08/04/23 19:10 06:05 WBC 11.81 H 13.93 H RBC 3.57 L Hgb 10.0 L D Hct 29.5 L RDW 14.9 H Absolute Neutrophils 11.02 H Absolute Monocytes 1.04 H
--- NOTE | 2023-08-05 08:56 | DSE_ITS ---
Date of service: 08/05/23 Time of Service: 08:57 DS: Diagnosis Discharge Diagnosis (1) Status post primary low transverse section: Status: Acute Asessment and Plan: Postop day #2 status post repeat low-transverse section. Doing well. Discharge home today. Follow-up in the office in 1 and 6 weeks Discharge Plan Disposition Patient Disposition: Home Condition: Good Discharge Details Reason For Visit: Prolonged Rupture of Membrances Admit Date/Time: 08/02/23 18:52 Admit Provider: Felicia Gregorio Attending Provider: Felicia Gregorio Primary Care Provider: Amada,Unknown Hospital Course Hospital Course: Patient presented to the hospital after having rupture of membranes. Her care has been managed by home still runner up until 35 weeks, and then by our midwifery service. On presentation, she was ruptured and in latent labor. She received misoprostol x 1 per the midwives, and also antibiotics for prolonged rupture of membranes. She arrested her labor at 8 cm and was taken for primary section. She underwent a primary low-transverse section with approximately 800 cc blood loss for delivery of a viable male infant weighing 9 pounds 5 ounces in the occiput posterior position. Her baby is doing well. She is breast-feeding without significant difficulty. Her pain is well- controlled. She will be discharged home postoperative day #2, ambulating, tolerating regular diet with oral pain medication and stable vital signs. She will be seen back in the office in 1 week for incision check and postoperative care. All questions were answered today. Home Meds and New Rx's Prescriptions: New ibuprofen 800 mg tablet 800 mg PO Q8H Qty: 60 1RF oxycodone-acetaminophen [Percocet] 5-325 mg tablet 1 tab PO Q8H PRNQty: 14 0RF docusate sodium [Colace] 100 mg capsule 100 mg PO BID Qty: 60 0RF Continued 147-iron gluc-folic 13 mg iron- 1 mg tablet 1 tab PO DAILY magnesium 200 mg tablet 400 mg PO DAILY ferrous sulfate 15 mg iron (75 mg)/mL syringe 15 mg PO DAILY Discontinued aspirin [Adult Aspirin Regimen] 81 mg tablet,delayed release (DR/EC) 81 mg PO DAILY Discharge Instructions Stand Alone Forms: BC Instructions, BC Discharge Instruc Activity:: Pelvic rest Equipment/Supplies:: No Equipment Needed Diet:: As Tolerated Discharge Orders Discharge Orders: Discharge Order (Routine); Ordered 08/05/23 Ordered By: Felicia Gregorio OB:DS Summary Contraception Discussed Contraception Discussed: Yes Contraceptive Plan: IUD, Infant Gender-Baby A: Male weight: 9 lb 4.68 oz Status at Discharge Functional status at discharge: independent ambulation Overall status at discharge: patient is progressing back to baseline Mental Status: mental status grossly normal Speech and Movement: speech and movement normal Mood: congruent mood Affect: normal affect Exam Physical Exam Vital signs: Temp Pulse Resp BP Pulse Ox 97.6 F 109 H 16 131/73 97 08/05/23 07:30 08/05/23 07:30 08/05/23 07:30 08/05/23 07:30 08/05/23 07:30 PFSH All Active Problems (Updated 08/03/23 @ 11:00 by Felicia Gregorio DO) Status post primary low transverse section (Acute) Arrested labor (Acute) History of inadequate care (Acute) Macrosomia affecting management of mother in third trimester, single gestation (Acute) Prolonged rupture of membranes (Acute) Encounter for induction of labor (Acute) Medical History (Updated 08/03/23 @ 11:00 by Felicia Gregorio DO) IUD strings lost IUD surveillance (02/22/15) IUD (intrauterine device) in place (06/02/16) Vaginal births x 3/ I adopted child Family History Mother Personal history of malignant neoplasm Social History Smoking/Tobacco Use Status: Never Smoking risk assessment performed?: Yes Alcohol Intake: never Drug use: Never Adopted: No Household members: spouse and children Housing: house Number of Children: 4 Communication Needs: None Education Level: college Do you need help understanding health information?: Never Pets and animals: Yes (5 dogs, 2 cats, chicken and ducks) Pets and animals: cat(s) and dog(s) Sexually active: Yes Do you think of yourself as: straight/heterosexual Current gender identity: female What type of physical activity do you participate in: walking Duration: 15-30 minutes/day Frequency: 1-2 times per week Special yaa needs: No Agree to transfusion: Yes Seatbelt use: always Drive 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 Date GA/Weeks # Preg Succ Route Wgt Sex Labor Lgth Anesth esia Location Prov Complic 08/21/00 40 No Yes vaginal 7 lb 3 oz Female 12 04/25/03 41 No Yes vaginal 7 lb 7 oz Female 12 03/21/08 42 No Yes vaginal 8 lb 11 oz Male 10 Delivery Date: 08/21/00 Last Updated by: ANNA Garcia with Vandana Pruett Delivery Date: 04/25/03 Last Updated by: ANNA Garcia with Kulwinder Georges Delivery Date: 03/21/08 Last Updated by: ANNA Garcia with Neal Georges DS: Data Vitals/I&O Vitals and I&O: Vital Signs Temperature 97.6 F 08/05/23 07:30 Temperature Source Oral 08/05/23 07:30 Pulse 109 H 08/05/23 07:30 Pulse Rhythm Regular 08/05/23 07:30 Respiratory Rate 16 08/05/23 07:30 Blood Pressure 131/73 08/05/23 07:30 Blood Pressure Mean 92 08/05/23 07:30 Pulse Oximetry 97 08/05/23 07:30 Oxygen Delivery Method Room Air 08/03/23 14:21 Oxygen Flow Rate 0 08/03/23 14:21 Pain Level 5 08/05/23 07:31 Comment ice pack to incision 08/03/23 18:26 Intake & Output 08/04/23 08/04/23 08/05/23 11:59 23:59 11:59 Intake Total 1300 / 1300 Output Total 1600 / 2100 500 / 2100 Balance -300 / -800 -500 / -800 Intake: IV 1300 / 1300 Output: Urine 1600 / 2100 500 / 2100 Other: Urine Color Pale Yellow Urine Appearance Clear
[2023-08-05] MEDS: Docusate Sodium 100 MG CAP PO (12:47)
== END 2023-08-05 13:10 | disposition home or self-care (01) | DRG 788 ==
LOC: OBS 08-03 10:48 → BCD 08-04 08:31
PROVIDERS: Advanced Practice Midwife; Admitting Provider Obstetrics & Gynecology; Visit Provider Obstetrics & Gynecology
PROC: 10D00Z1 Extraction of Products of Conception, Low, Open Approach (ICD-10-PCS; CPT 59514; principal; 2023-08-03 10:45)
DX: O42.92 Full-term premature rupture of membranes, unspecified as to length of time between rupture and onset of labor; O36.63X0 Maternal care for excessive fetal growth, third trimester, not applicable or unspecified; Z37.0 Single live birth; Z3A.40 40 weeks gestation of pregnancy; O62.1 Secondary uterine inertia
CPT/HCPCS: 59514; 36415; 85027; 86850; 86900; 86901; 85025; 88307; J0456; J0690; J1885; J2371; J2540; J3010; J3490